=== PATIENT | male | born 1960 ===

== ENCOUNTER → 2024-03-15 | Outpatient (CLI) | payer MEDICARE, OTHER ==
--- NOTE | 2024-03-15 11:27 | CTL ---
EXAMINATION TYPE: CT Low Dose Lung DATE OF EXAM ORDERED: 03/15/2024 COMPARISON: None CLINICAL INDICATION: Male, 64 years old with history of Z12.2 LUNG CA SCR F17.210 CURRENT SMOKER; [facility] , lung CA screening, Lung cancer screening, History of Smoking/tobacco use. TECHNIQUE: Low dose computed tomography scan was performed through the chest at 1 mm thick sections a nd reconstructed images in multiple planes at 1 mm and [address] DLP: [address] CTDI: 2.49 mGy Automated exposure control for dose reduction was used. CT DIAGNOSTIC QUALITY: Satisfactory FINDINGS: There is no suspicious lung mass or nodule There are [id number] emphysematous changes with an upper lobe predominance. There is a large bu lla in the subpleural parenchymal lung of the right upper lobe medially. There is a tiny 2 to 3 mm no dule in the right middle lobe. There is no mediastinal, hilar or axillary adenopathy. There is no pleural effusion, pleural thickening or pneumothorax. No focal osseous lesions are seen. Limited scans the upper abdomen reveals no gross abnormality IMPRESSION: 1. Lung rads Category 2 negative. Continue routine screening at yearly intervals. 2. No acute cardiopulmonary disease. 3. Mild to moderate emphysematous changes. [facility], , 03/15/2024 11:24 AM
== END | disposition home or self-care (01) ==
LOC: RADCTMAIN 10:30
PROVIDERS: ATTEND Family Medicine
DX: Z12.2 Encounter for screening for malignant neoplasm of respiratory organs (principal); J43.9 Emphysema, unspecified; F17.210 Nicotine dependence, cigarettes, uncomplicated
CPT/HCPCS: 71271